=== PATIENT | female | born 2000 | race Two or more races ===

== ENCOUNTER 2019-09-18 21:53 | Emergency (ER) | payer MEDICAID ==
[~2019-09-18] VITALS: Ht 160 cm; Wt 79.0 kg
[2019-09-18] MEDS ORDERED: OMEG-53 PO (22:00)
[2019-09-18 22:19] VITALS: BP 120/80
== END 2019-09-18 23:04 | disposition home or self-care (01) ==
LOC: EMS 21:53
DX: Z32.01 Encounter for pregnancy test, result positive (principal); Z79.899 Other long term (current) drug therapy
CPT/HCPCS: Z7502

== ENCOUNTER 2022-10-24 22:18 | Emergency (ER) | payer MEDICAID, OTHER ==
[~2022-10-24] VITALS: Ht 162.6 cm; Wt 90.0 kg
[~2022-10-24 22:18] MED LIST: OMEG-53 PO
[2022-10-24 22:48] VITALS: TEMP 98.6
[2022-10-25] MEDS ORDERED: IBUP-1492 PO (00:44)
[2022-10-25] MEDS ORDERED: IBUPROFEN 600 MG TABLET PO ONE (00:45)
[2022-10-25 00:58] VITALS: BP 126/66; PULSE 78; RESP 16
== END 2022-10-25 01:00 | disposition home or self-care (01) ==
LOC: EMS 22:18
DX: S93.401A Sprain of unspecified ligament of right ankle, initial encounter (principal); W01.0XXA Fall on same level from slipping, tripping and stumbling without subsequent striking against object, initial encounter; Y93.66 Activity, soccer; Y92.89 Other specified places as the place of occurrence of the external cause; Y99.8 Other external cause status
CPT/HCPCS: 29530; 29540; 99284; 73562-TC; 73610-TC; Z7502; Z7610

== ENCOUNTER 2024-01-18 15:43 | Emergency (ER) | payer OTHER ==
[~2024-01-18] VITALS: Ht 162.6 cm; Wt 68.2 kg
[~2024-01-18 15:43] MED LIST changes: +IBUP-1492 PO
[2024-01-18 15:47] VITALS: TEMP 97.9
[2024-01-18 16:31] LABS: BASOPHILS % (AUTO) 0.4 % (0.0-2.0); EOSINOPHILS % (AUTO) 2.3 % (1.0-6.0); HEMATOCRIT 36.6 % (36-46); HEMOGLOBIN 12.2 g/dL (12.0-16.0); LYMPHOCYTES # (AUTO) 5.3 K/uL (1.0-4.8); LYMPHOCYTES % (AUTO) 49.8 % (22.0-44.0); MEAN CORPUSCULAR HEMOGLOBIN 29.7 pg (26.0-34.0); MEAN CORPUSCULAR HGB CONC 33.4 G/dL (31.0-37.0); MEAN CORPUSCULAR VOLUME 89 fL (80-100); MONOCYTES # (AUTO) 0.6 K/uL (0.1-1.0); MONOCYTES % (AUTO) 5.5 % (2.0-9.0); NEUTROPHILS # (AUTO) 4.5 K/uL (1.8-7.7); PLATELET COUNT (AUTO) 248 K/uL (150-450); RED BLOOD CELL COUNT(AUTO) 4.12 MIL/uL (4.00-5.20); RED CELL DISTRIBUTION WIDTH 13.3 % (11.5-14.5); WHITE BLOOD COUNT (AUTO) 10.7 K/uL (4.5-11.0)
[2024-01-18 16:39] LABS: ANION GAP 7 mmol/L (8-16); CALCIUM, TOTAL 8.9 mg/dL (8.8-10.5); CARBON DIOXIDE 28 mmol/L (22-29); CHLORIDE 105 mmol/L (98-107); CREATININE 0.85 mg/dL (0.60-1.30); GLOMERULAR FILTR. RATE CALC > 60 mL/min (>60); GLUCOSE,RANDOM 69 mg/dL (70-110); POTASSIUM 3.5 mmol/L (3.5-5.1); SODIUM SERUM 140 mmol/L (136-145); UREA NITROGEN, BLOOD 17 mg/dL (7-18)
[2024-01-18 16:48] LABS: TROPONIN I-HIGH SENSITIVITY 21 ng/L (<51)
[2024-01-18 17:50] VITALS: BP 133/82; PULSE 72; RESP 18; O2SAT 99
== END 2024-01-18 19:32 | disposition home or self-care (01) ==
LOC: EMS 15:48
DX: R07.89 Other chest pain (principal); R00.2 Palpitations
CPT/HCPCS: 71045; 80048; 84484; 85025; 93005; 99285; 36415-L1; 36415-TC

== ENCOUNTER 2024-01-22 21:59 | Emergency (ER) | payer OTHER ==
[~2024-01-22] VITALS: Ht 160 cm; Wt 84.5 kg
[2024-01-22 22:00] VITALS: BP 131/85; PULSE 100; RESP 12; TEMP 98.8; O2SAT 99
== END 2024-01-22 23:05 | disposition left against medical advice (07) ==
LOC: EMS 22:00
DX: R07.9 Chest pain, unspecified (principal); Z53.21 Procedure and treatment not carried out due to patient leaving prior to being seen by health care provider
CPT/HCPCS: 93005